=== PATIENT | male | born 1955 | race Caucasian/White ===

== ENCOUNTER 2017-04-09 12:41 | Emergency (ER) | payer OTHER ==
[2017-04-09] MEDS ORDERED: Fluticasone-Salmeterol 250-50* DISKUS INH ONE (13:13)
[2017-04-09] MEDS ORDERED: Lidocaine 2% VISCOUS* 15 ML UDC PO ONE (13:13)
[2017-04-09] MEDS ORDERED: Al Hydrox/Mg Hydrox/Simet LIQ* 30 ML UDC PO ONE (13:13)
[2017-04-09] MEDS ORDERED: Mometasone/Formoter 200/5 MDI INH ONE (13:28)
[2017-04-09 14:01] VITALS: BP 116/59
--- NOTE | 2017-04-09 14:07 | ED ---
Brenden Silva Stephanie, scribed for Surjit Acuna MD on 04/09/17 at 1332 . HPI Chest Pain - HPI Summary HPI Summary: The pt is a 62 y/o M with c/o CP that radiates to his left arm that began through the past week. The pain is described as pressure and is intermittent upon exertion. Symptoms include SOB. Pt denies influenza symptoms. The patient states that the pain wakes him up at night and is perceived as a 10/10 in severity. Aggravating factors include ambulating and exertion. Alleviating factors include rest. He was seen at a hospital in [place] last week for CP. - History of Current Complaint Chief Complaint: EDChestPainROMI Time Seen by Provider: 04/09/17 12:53 Hx Obtained From: Patient Onset/Duration: Started Weeks Ago Timing: Lasting Seconds Pain Intensity: 6 Pain Scale Used: 0-10 Numeric Chest Pain Radiates: Yes Chest Pain Radiates To:: Shoulder - L Aggravating Factor(s): Exertion Alleviating Factor(s): Rest Associated Signs and Symptoms: Positive: Chest Pain, Shortness of Breath, Other : - Negative: influenza symptoms - Allergy/Home Medications Allergies/Adverse Reactions: Allergies Allergy/AdvReac Type Severity Reaction Status Date / Time Cephalexin [From Keflex] Allergy Hives Verified 04/09/17 12:45 Penicillins [PCN] Allergy Unknown Verified 04/09/17 12:45 Reaction Details Rofecoxib [From Vioxx] Allergy Unknown Verified 04/09/17 12:45 Reaction Details PMH/Surg Hx/FS Hx/Imm Hx Previously Healthy: No Cardiovascular History: Reports: Hx Atrial Fibrillation, Hx Coronary Artery Disease, Hx Hypertension Respiratory History: Reports: Hx Chronic Obstructive Pulmonary Disease (COPD) Sensory History: Denies: Hx Deafness EENT History: Denies: Hx Deafness Infectious Disease History: No Infectious Disease History: Denies: Traveled Outside the [place] in Last 30 Days - Family History Known Family History: Positive: Other - Stroke - Social History Occupation: Unemployed Alcohol Use: None Alcohol Amount: At [facility] Hx Tobacco Use: Yes Smoking Status (MU): Former Smoker Review of Systems Negative: Fever Positive: Chest Pain Positive: Shortness Of Breath All Other Systems Reviewed And Are Negative: Yes Physical Exam - Summary Physical Exam Summary: Appearance: Well appearing, no pain distress Skin: warm, dry, reflects adequate perfusion Head/face: normal Eyes: EOMI, SILVIA ENT: normal Neck: supple, non-tender Respiratory: CTA, breath sounds present Cardiovascular: RRR, pulses symmetrical Abdomen: non-tender, soft Bowel: present Musculoskeletal: normal, strength/ROM intact Neuro: normal, sensory motor intact, A&Ox3 Triage Information Reviewed: Yes Vital Signs On Initial Exam: Initial Vitals Temp Pulse Resp BP Pulse Ox 98.3 F 73 14 124/89 99 04/09/17 12:44 04/09/17 12:44 04/09/17 12:44 04/09/17 12:44 04/09/17 12:44 Vital Signs Reviewed: Yes - [place] Coma Scale Coma Scale Total: 15 Diagnostics - Vital Signs Vital Signs Temp Pulse Resp BP Pulse Ox 04/09/17 13:00 59 18 122/74 100 04/09/17 12:53 49 19 127/59 100 04/09/17 12:50 61 18 99 04/09/17 12:44 98.3 F 73 14 124/89 99 - Laboratory Lab Statement: Any lab studies that have been ordered have been reviewed, and results considered in the medical decision making process. - EKG 12:43 EKG Rhythm: Sinus Bradycardia ST Segment: Normal EKG Interpretation: Rate of 58 BPM. Nml axis. Q wave in lead 3. PACs Re-Evaluation - Re-Evaluation First Eval Change: Improved - feels better after talking and with tx Chest Pain Course/Dx - Course Course Of Treatment: Pt with near daily CP for some time now. Rollout Manager has identified that it is NON-cardiac and stopped his nitro. Just admitted for 5d out of the last week and found non cardiac. Had alcohol related afib. Now at detox/rehab center. Comfortable here. COPD is untreated. Added controlled med as well as GI protectant (PPI) to cover non-cardiac causes of his chronic CP. It seems his presentation also is related to lonliness of homlessness. Has resources once he leave rehab. - Diagnoses Provider Diagnoses: Homelessness, Chronic chest pain, COPD (chronic obstructive pulmonary disease) Discharge - Discharge Plan Condition: Fair Disposition: HOME Prescriptions: Fluticasone-Salmeterol 250-50* [Advair Diskus 250-50*] 1 puff INH BID #1 diskus Pantoprazole TAB (NF) [Protonix TAB (NF)] 40 mg PO DAILY #30 tab Patient Education Materials: Chest Pain (ED), COPD (Chronic Obstructive Pulmonary Disease) (ED) Referrals: No Primary Care Phys,NOPCP [Primary Care Provider] - Additional Instructions: Physician Referral Card provided. See a doctor once you establish yourself in one area. Take your medications as prescribed. Return if worse, new symptoms or other concerns. The documentation as recorded by the Brenden souza Stephanie accurately reflects the service I personally performed and the decisions made by me, Surjit Acuna MD.
== END 2017-04-09 13:59 | disposition home or self-care (01) ==
LOC: ED 12:41
DX: R07.9 Chest pain, unspecified (principal); G89.29 Other chronic pain; Z59.0 Homelessness; J44.9 Chronic obstructive pulmonary disease, unspecified; I48.91 Unspecified atrial fibrillation; I25.10 Atherosclerotic heart disease of native coronary artery without angina pectoris; I10 Essential (primary) hypertension; Z87.891 Personal history of nicotine dependence; Z88.0 Allergy status to penicillin
CPT/HCPCS: 93005; 94640; 99283; A9270-GY